=== PATIENT | male | born 1970 | race Caucasian/White ===

== ENCOUNTER 2016-10-23 12:16 | Emergency (ER) | payer SELFPAY ==
[~2016-10-23] VITALS: Ht 188 cm; Wt 105.5 kg
[~2016-10-23 12:16] MED LIST: CLIN150 PO; DICL75 PO; IBUP800T23 PO; LACT PO; TYLE3 PO
[2016-10-23 12:27] VITALS: BP 180/90; PULSE 79; RESP 16; TEMP 98; O2SAT 95
--- NOTE | 2016-10-23 12:35 | PD ---
HPI Chief Complaint: Dizziness Time Seen by Provider: 12:32 Travel History International Travel<30 days: No Contact w/Intl Traveler<30days: No Traveled to known affect area: No History of Present Illness HPI This is a 46-year-old male who presents to the emergency department with one hour of dizziness and lightheadedness, not feeling like himself and not feeling like he has control over his body, constant, improved here in the emergency department. He denies a headache, vomiting, chest pain or shortness of breath. He feels like his vision is blurry and describes a fog-like covering to his vision. He feels like he can't focus. He's not had any difficulty walking or talking. He's never had symptoms like this before. He did use marijuana at 3 AM and drink alcohol last night that he felt fine when he woke up this morning. He doesn't take any medication for high blood pressure. PFSH Past Medical History Hx Anticoagulant Therapy: No Blood Disorders: No Cancer: No Cardiovascular Problems: No Chemotherapy: No Cerebrovascular Accident: No Diabetes: No Diminished Hearing: No Genitourinary: No Immune Disorder: No Musculoskeletal: Yes Neurologic: No Psychiatric: No Reproductive: Yes Respiratory: No Immunizations Current: Yes Past Surgical History Abdominal Surgery: Yes (HERNIA REPAIR) Hysterectomy: No Other Surgery: Yes (cyst removal from face, hernia repair as ) Social History Alcohol Use: Yes (TWICE PER WK) Tobacco Use: Yes (LESS THAN ONE PPD) Substance Use: No Allergies-Medications (Allergen,Severity, Reaction): Coded Allergies: No Known Allergies (Verified , 10/23/16) Reported Meds & Prescriptions Reported Meds & Active Scripts Active No Active Prescriptions or Reported Medications Review of Systems Except as stated in HPI: all other systems reviewed are Neg Physical Exam Narrative GENERAL:Well appearing, no acute distress SKIN: Warm and dry. HEAD: Atraumatic. Normocephalic. EYES: Pupils equal and round. No injection or drainage. ENT: Moist mucous membranes NECK: Trachea midline. CARDIOVASCULAR: Regular rate and rhythm. No murmur appreciated. RESPIRATORY: Clear to auscultation. Breath sounds equal bilaterally. GASTROINTESTINAL: Abdomen soft, non-tender, nondistended. MUSCULOSKELETAL: No obvious deformities. NEUROLOGICAL: Awake and alert. No obvious cranial nerve deficits. No dysarthria or aphasia. No upper or lower extremity drift. No upper extremity ataxia. Inconsistent visual field exam. Patient feels like his vision is foggy when he is assessed. PSYCHIATRIC: Appropriate mood and affect; insight and judgment normal. Data Data Last Documented VS Vital Signs Date Time Temp Pulse Resp B/P Pulse Ox O2 Delivery O2 Flow Rate FiO2 10/23/16 13:05 68 16 155/76 98 Room Air 10/23/16 12:27 98.0 Orders Complete Blood Count With Diff (10/23/16 12:32) Comprehensive Metabolic Panel (10/23/16 12:32) Electrocardiogram (10/23/16 ) Troponin I (10/23/16 12:32) ^ Insert Iv (10/23/16 12:32) Sodium Chlor 0.9% 1000 Ml Inj (Ns 1000 M (10/23/16 12:45) Labetalol Inj (Trandate Inj) (10/23/16 12:45) Labs Laboratory Tests Test 10/23/16 12:38 White Blood Count 11.7 TH/MM3 Red Blood Count 5.11 MIL/MM3 Hemoglobin 15.7 GM/DL Hematocrit 46.2 % Mean Corpuscular Volume 90.4 FL Mean Corpuscular Hemoglobin 30.6 PG Mean Corpuscular Hemoglobin 33.9 % Concent Red Cell Distribution Width 12.7 % Platelet Count 208 TH/MM3 Mean Platelet Volume 8.5 FL Neutrophils (%) (Auto) 67.0 % Lymphocytes (%) (Auto) 21.7 % Monocytes (%) (Auto) 7.2 % Eosinophils (%) (Auto) 3.6 % Basophils (%) (Auto) 0.5 % Neutrophils # (Auto) 7.9 TH/MM3 Lymphocytes # (Auto) 2.5 TH/MM3 Monocytes # (Auto) 0.8 TH/MM3 Eosinophils # (Auto) 0.4 TH/MM3 Basophils # (Auto) 0.1 TH/MM3 CBC Comment DIFF FINAL Differential Comment Sodium Level 143 MEQ/L Potassium Level 4.0 MEQ/L Chloride Level 107 MEQ/L Carbon Dioxide Level 26.3 MEQ/L Anion Gap 10 MEQ/L Blood Urea Nitrogen 15 MG/DL Creatinine 1.20 MG/DL Estimat Glomerular Filtration 65 ML/MIN Rate Random Glucose 100 MG/DL Calcium Level 8.7 MG/DL Total Bilirubin 0.7 MG/DL Aspartate Amino Transf 17 U/L (AST/SGOT) Alanine Aminotransferase 28 U/L (ALT/SGPT) Alkaline Phosphatase 103 U/L Troponin I LESS THAN 0.02 NG/ML Total Protein 7.5 GM/DL Albumin 3.9 GM/DL MDM Medical Decision Making Medical Screen Exam Complete: Yes Emergency Medical Condition: Yes Interpretation(s) Afebrile, no tachycardia, hypertensive Mild leukocytosis Electrolytes are reassuring Troponin is normal EKG: Normal sinus rhythm with no ST changes Differential Diagnosis BPPV, dehydration, stroke, myocardial infarction, substance intoxication Narrative Course This is a 46-year-old male who presents to the emergency department with dizziness and lightheadedness, not feeling himself, having smoked marijuana and drank alcohol last night. He was placed on a monitor and an IV was established. EKG is reassuring with no arrhythmia. He was hypertensive on arrival but his blood pressure improved on its own with rest. Labs are obtained which were all reassuring. He has a normal neurologic exam. He had some abnormality on visual field assessment which was inconsistent. I suspect that the patient is having some side effects of substance use from last night. I don't suspect a stroke or another acute neurologic emergency. I think he's safe for discharge and follow-up with his primary care physician. Diagnosis Primary Impression: Dizziness Patient Instructions: General Instructions Additional Instructions: If you develop severe chest pain, shortness of breath, sweating, lightheadedness , dizziness or difficulty breathing return to the emergency department immediately. Followup with your primary care physician in 2-3 days if your symptoms are not resolved. Med/Other Pt SpecificInfo: No Change to Meds Scripts No Active Prescriptions or Reported Meds Disposition: 01 DISCHARGE HOME Condition: Stable Jamee Feledr MD Oct 23, 2016 12:35
[2016-10-23] MEDS ORDERED: SODIUM CHLOR 0.9% 1000 ML INJ 1,000 ML IV ONE (12:45)
[2016-10-23] MEDS ORDERED: LABETALOL HCL 100 MG/20 ML VIAL IV PUSH ONE (12:45)
[2016-10-23 12:49] LABS: AUTOMATED NEUTROPHIL # 7.9 TH/MM3 (1.8-7.7); BASOPHIL # 0.1 TH/MM3 (0-0.2); BASOPHIL % 0.5 % (0.0-2.0); EOSINOPHIL # 0.4 TH/MM3 (0-0.4); EOSINOPHIL % 3.6 % (0.0-4.0); HEMATOCRIT 46.2 % (39.0-51.0); HEMO FLAGS DIFF FINAL; LYMPH % 21.7 % (9.0-44.0); LYMPHOCYTE # 2.5 TH/MM3 (1.0-4.8); MEAN CELL VOLUME 90.4 FL (80.0-100.0); MEAN CORPUSCULAR HEMOGLOBIN 30.6 PG (27.0-34.0); MEAN CORPUSCULAR HGB CONC 33.9 % (32.0-36.0); MONO % 7.2 % (0.0-8.0); PLATELET COUNT 208 TH/MM3 (150-450); RED BLOOD COUNT 5.11 MIL/MM3 (4.50-5.90); RED CELL DISTRIBUTION WIDTH 12.7 % (11.6-17.2); WHITE BLOOD COUNT 11.7 TH/MM3 (4.0-11.0)
[2016-10-23 12:56] LABS: CHLORIDE 107 MEQ/L (98-107); SODIUM (NA) 143 MEQ/L (136-145)
[2016-10-23 13:00] LABS: ANION GAP 10 MEQ/L (5-15); BICARBONATE 26.3 MEQ/L (21.0-32.0); BLOOD UREA NITROGEN 15 MG/DL (7-18)
[2016-10-23 13:03] LABS: ALT (GPT) 28 U/L (12-78); AST (GOT) 17 U/L (15-37); GLOMERULAR FILTRATION RATE 65 ML/MIN (>89)
[2016-10-23 13:05] VITALS: BP 155/76; PULSE 68; RESP 16; O2SAT 98
[2016-10-23 13:05] LABS: TOTAL BILIRUBIN ADULT 0.7 MG/DL (0.2-1.0)
[2016-10-23 13:06] LABS: ALKALINE PHOSPHATASE 103 U/L (45-117)
--- NOTE | 2016-10-23 15:24 | EKG ---
Date Performed: 10/23/2016 Time Performed: 12:24:52 PTAGE: 46 years EKG: Sinus rhythm . Normal ECG No significant change from prior electrocardiogram. PREVIOUS TRACING : 05/13/2010 10.09 DOCTOR: Mehdi Pires Interpretating Date/Time 10/23/2016 15:22:31
== END 2016-10-23 13:37 | disposition home or self-care (01) ==
LOC: PHED 12:16
DX: R42 Dizziness and giddiness (principal); H53.8 Other visual disturbances; F17.210 Nicotine dependence, cigarettes, uncomplicated; R03.0 Elevated blood-pressure reading, without diagnosis of hypertension
CPT/HCPCS: 80053; 84484; 85025; 93005; 99284; J7030

== ENCOUNTER 2017-11-29 05:08 | Emergency (ER) | payer SELFPAY ==
[~2017-11-29] VITALS: Ht 190.5 cm; Wt 111.0 kg
[2017-11-29 05:16] VITALS: BP 138/90; PULSE 71; RESP 18; TEMP 97.8; O2SAT 95
[2017-11-29 05:27] VITALS: BP 143/93; PULSE 75; RESP 18; O2SAT 100
[2017-11-29] MEDS ORDERED: SODIUM CHLORIDE 0.9% FLUSH 10 ML FLUSH IVF PRN (05:45)
--- NOTE | 2017-11-29 05:46 | PD ---
HPI Chief Complaint: General Weakness Time Seen by Provider: 05:36 Travel History International Travel<30 days: No Contact w/Intl Traveler<30days: No Traveled to known affect area: No History of Present Illness HPI 47-year-old male presents to the emergency department by private transportation for complaint of 1 month of increased sweating and night sweats with poor appetite, 10# weight loss, and cough. Patient denies fever chills. Patient denies hemoptysis. Patient has noted dark stools. Patient does not report any chest pain, pleuritic chest pain, or shortness of breath. Patient states he does have associated increased fatigue. No prior history of thyroid dysfunction , diabetes, or TB. No other family members with similar symptoms. Approximately 10 pound weight loss over a month. Patient states he is unable to perform his usual tasks without associated fatigue. Father from lymphoma in his 40s and mother in her 40s of some type of cancer. Patient denies personal history of thyroid dysfunction, diabetes, hypertension, dyslipidemia, heart disease, autoimmune disease, or cancer. Patient does not report fever, chills, altered mentation, ataxia, visual disturbance, difficulty swallowing, sinus pressure drainage, earache, neck pain or swelling, or lymph nodes, chest pain or shortness of breath, nausea or vomiting, patient does not complain of abdominal pain or increasing abdominal girth. Patient does report he's noted dark stools. PFSH Past Medical History Narrative Medical back pain; herniorrhaphy; tobacco use alcohol use; nursing notes reviewed Hx Anticoagulant Therapy: No Blood Disorders: No Cancer: No Cardiovascular Problems: No Chemotherapy: No Cerebrovascular Accident: No Diabetes: No Diminished Hearing: No Gastrointestinal Disorders: No Genitourinary: No Immune Disorder: No Implanted Vascular Access Dvce: No Musculoskeletal: Yes Neurologic: No Psychiatric: No Reproductive: Yes Respiratory: No Immunizations Current: Yes ?: Not Past Surgical History Abdominal Surgery: Yes (HERNIA REPAIR) Hysterectomy: No Other Surgery: Yes (cyst removal from face, hernia repair as ) Family History Family History: father cancer; mother cancer Social History Alcohol Use: Yes (SOCIAL) Tobacco Use: Yes (08/09 PPD) Substance Use: No Allergies-Medications (Allergen,Severity, Reaction): Coded Allergies: No Known Allergies (Verified , 10/23/16) Reported Meds & Prescriptions Reported Meds & Active Scripts Active No Active Prescriptions or Reported Medications Review of Systems Except as stated in HPI: all other systems reviewed are Neg General / Constitutional: No: Fever, Chills HENT: No: Congestion Cardiovascular: No: Chest Pain or Discomfort Respiratory: No: Shortness of Breath Gastrointestinal: No: Abdominal Pain Musculoskeletal: No: Pain Skin: Positive Rash Neurologic: No: Weakness Psychiatric: No: Anxiety Hematologic/Lymphatic: No: Lymph Node Enlargement Physical Exam Narrative GENERAL: Well-developed nourished male no acute distress no respiratory distress SKIN: Warm and dry. No splinter hemorrhages. HEAD: Atraumatic. Normocephalic. EYES: Pupils equal and round. No scleral icterus. No injection or drainage. ENT: No nasal bleeding or discharge. Mucous membranes pink and moist. NECK: Trachea midline. No JVD. CARDIOVASCULAR: Regular rate and rhythm. No murmur or rubs. RESPIRATORY: No accessory muscle use. Clear to auscultation. Breath sounds equal bilaterally. GASTROINTESTINAL: Abdomen soft, non-tender, nondistended. Hepatic and splenic margins not palpable. Rectal exam: No fissure normal sphincter tone mild prostate enlargement to palpation without nodularity and sulcus is midline nontender non-boggy; brown stool Hemoccult negative. MUSCULOSKELETAL: Extremities without clubbing, cyanosis, or edema. No obvious deformities. NEUROLOGICAL: Awake and alert. No obvious cranial nerve deficits. Motor grossly within normal limits. Five out of 5 muscle strength in the arms and legs. Normal speech. PSYCHIATRIC: Appropriate mood and affect; insight and judgment normal. Data Data Last Documented VS Vital Signs Date Time Temp Pulse Resp B/P (MAP) Pulse Ox O2 Delivery O2 Flow Rate FiO2 11/29/17 06:32 69 16 147/83 (104) 100 Room Air 11/29/17 05:16 97.8 Orders Orders Complete Blood Count With Diff (11/29/17 05:36) Comprehensive Metabolic Panel (11/29/17 05:36) Magnesium (Mg) (11/29/17 05:36) Urinalysis - C+S If Indicated (11/29/17 05:36) Chest, Pa & Lat (11/29/17 05:36) Ecg Monitoring (11/29/17 05:36) Iv Access Insert/Monitor (11/29/17 05:36) Oximetry (11/29/17 05:36) Sodium Chloride 0.9% Flush (Ns Flush) (11/29/17 05:45) Thyroid Stimulating Hormone (11/29/17 05:36) Alcohol (Ethanol) (11/29/17 05:36) Blood Glucose (11/29/17 05:36) Lipase (11/29/17 05:36) Electrocardiogram (11/29/17 ) Lactic Acid (11/29/17 06:30) Troponin I (11/29/17 05:43) Mandatory Outpatient Referral (11/29/17 06:50) Labs Laboratory Tests Test 11/29/17 05:43 11/29/17 06:30 White Blood Count 11.0 TH/MM3 Red Blood Count 5.26 MIL/MM3 Hemoglobin 16.6 GM/DL Hematocrit 48.2 % Mean Corpuscular Volume 91.6 FL Mean Corpuscular Hemoglobin 31.6 PG Mean Corpuscular Hemoglobin Concent 34.5 % Red Cell Distribution Width 13.4 % Platelet Count 205 TH/MM3 Mean Platelet Volume 8.2 FL Neutrophils (%) (Auto) 67.5 % Lymphocytes (%) (Auto) 20.4 % Monocytes (%) (Auto) 6.8 % Eosinophils (%) (Auto) 3.2 % Basophils (%) (Auto) 2.1 % Neutrophils # (Auto) 7.3 TH/MM3 Lymphocytes # (Auto) 2.3 TH/MM3 Monocytes # (Auto) 0.8 TH/MM3 Eosinophils # (Auto) 0.4 TH/MM3 Basophils # (Auto) 0.2 TH/MM3 CBC Comment DIFF FINAL Differential Comment Blood Urea Nitrogen 16 MG/DL Creatinine 1.10 MG/DL Random Glucose 86 MG/DL Total Protein 7.3 GM/DL Albumin 3.6 GM/DL Calcium Level 9.0 MG/DL Magnesium Level 2.2 MG/DL Alkaline Phosphatase 108 U/L Aspartate Amino Transf (AST/SGOT) 14 U/L Alanine Aminotransferase (ALT/SGPT) 23 U/L Total Bilirubin 0.4 MG/DL Sodium Level 140 MEQ/L Potassium Level 3.9 MEQ/L Chloride Level 108 MEQ/L Carbon Dioxide Level 26.5 MEQ/L Anion Gap 6 MEQ/L Estimat Glomerular Filtration Rate 71 ML/MIN Lipase 112 U/L Thyroid Stimulating Hormone 3rd Gen 1.490 uIU/ML Ethyl Alcohol Level LESS THAN 3 MG/DL MDM Medical Decision Making Medical Screen Exam Complete: Yes Emergency Medical Condition: Yes Medical Record Reviewed: Yes Interpretation(s) TSH: 1.490, wnl cxr: nad lipase: not elevated CBC & BMP Diagram 11/29/17 05:43 Total Protein 7.3, Albumin 3.6, Calcium Level 9.0, Magnesium Level 2.2, Alkaline Phosphatase 108, Aspartate Amino Transf (AST/SGOT) 14 L, Alanine Aminotransferase (ALT/SGPT) 23, Total Bilirubin 0.4 Vital Signs Date Time Temp Pulse Resp B/P (MAP) Pulse Ox O2 Delivery O2 Flow Rate FiO2 11/29/17 05:31 18 100 Room Air 11/29/17 05:27 75 18 143/93 (110) 100 11/29/17 05:16 97.8 71 18 138/90 (106) 95 Differential Diagnosis Diabetes, thyroid dysfunction, hormonal etiology-low testosterone, malignancy, infectious etiology-tuberculosis\endocarditis\osteomyelitis\viral syndrome, gi bleed-anemia, substance ingestion, alcohol use/abuse-cirrhosis, CVD Narrative Course 47-year-old previously healthy male with 1 month of weight loss night sweats and fatigue presents for further evaluation with nonfocal physical exam and vital signs grossly within normal limits. Specimens collected and sent for resulting. CBC with automated differential values are in normal range normal white cell count normal automated differential normal hemoglobin hematocrit and platelet count; chemistries remarkable for grossly within normal range with normal LFTs lipase renal function BUN/creatinine bicarb and electrolytes also normal range glucose. Alcohol less than 3, not elevated; denies substance use or exposure. [facility] Point of Care Internal Pos. & Neg. Controls: Passed Fecal Specimen Occult Blood: Negative Diagnosis Primary Impression: Generalized hyperhidrosis Referrals: Primary Care Physician call for appointment Patient Instructions: General Instructions Additional Instructions: Follow-up with primary care provider Return to the emergency department for any concerns or change in condition Med/Other Pt SpecificInfo: No Meds Exist/No RX given Scripts No Active Prescriptions or Reported Meds Tessa Arnold MD Nov 29, 2017 05:46
[2017-11-29 05:53] LABS: AUTOMATED NEUTROPHIL # 7.3 TH/MM3 (1.8-7.7); BASOPHIL # 0.2 TH/MM3 (0-0.2); BASOPHIL % 2.1 % (0.0-2.0); EOSINOPHIL # 0.4 TH/MM3 (0-0.4); EOSINOPHIL % 3.2 % (0.0-4.0); HEMATOCRIT 48.2 % (39.0-51.0); HEMOGLOBIN 16.6 GM/DL (13.0-17.0); LYMPH % 20.4 % (9.0-44.0); LYMPHOCYTE # 2.3 TH/MM3 (1.0-4.8); MEAN CELL VOLUME 91.6 FL (80.0-100.0); MEAN CORPUSCULAR HEMOGLOBIN 31.6 PG (27.0-34.0); MEAN CORPUSCULAR HGB CONC 34.5 % (32.0-36.0); MEAN PLATELET VOLUME 8.2 FL (7.0-11.0); MONO % 6.8 % (0.0-8.0); MONOCYTE # 0.8 TH/MM3 (0-0.9); NEUT % 67.5 % (16.0-70.0); PLATELET COUNT 205 TH/MM3 (150-450); RED BLOOD COUNT 5.26 MIL/MM3 (4.50-5.90); RED CELL DISTRIBUTION WIDTH 13.4 % (11.6-17.2)
[2017-11-29 06:01] LABS: CHLORIDE 108 MEQ/L (98-107); SODIUM (NA) 140 MEQ/L (136-145)
[2017-11-29 06:05] LABS: ALBUMIN 3.6 GM/DL (3.4-5.0); BICARBONATE 26.5 MEQ/L (21.0-32.0); BLOOD UREA NITROGEN 16 MG/DL (7-18); GLUCOSE,RANDOM 86 MG/DL (74-106); MAGNESIUM 2.2 MG/DL (1.5-2.5)
[2017-11-29 06:08] LABS: ALT (GPT) 23 U/L (12-78); AST (GOT) 14 U/L (15-37); GLOMERULAR FILTRATION RATE 71 ML/MIN (>89)
[2017-11-29 06:09] LABS: TOTAL BILIRUBIN ADULT 0.4 MG/DL (0.2-1.0); TOTAL PROTEIN 7.3 GM/DL (6.4-8.2)
[2017-11-29 06:11] LABS: ALKALINE PHOSPHATASE 108 U/L (45-117)
--- NOTE | 2017-11-29 06:29 | RADRPT ---
EXAM DATE/TIME: 11/29/2017 06:05 [facility] COMPARISON: No previous studies available for comparison. INDICATIONS : Cough. MEDICAL HISTORY : None. SURGICAL HISTORY : None. ENCOUNTER: Initial ACUITY: 1 month PAIN SCORE: 0/10 LOCATION: Bilateral chest FINDINGS: PA and lateral views of the chest demonstrate the lungs to be symmetrically aerated without evidence of mass, infiltrate or effusion. The cardiomediastinal contours are unremarkable. Osseous structure s are intact. CONCLUSION: No acute disease. Bob Echavarria MD on November 29, 2017 at 6:27 Board Certified Radiologist. This report was verified electronically.
[2017-11-29 06:32] VITALS: BP 147/83; PULSE 69; RESP 16; O2SAT 100
[2017-11-29 07:01] LABS: BILIRUBIN, URINE NEG (NEG); BLOOD, URINE NEG (NEG); GLUCOSE,URINE NEG (NEG); KETONE, URINE NEG (NEG); NITRITE,URINE NEG (NEG); PH, URINE 6.5 (5.0-8.5); URINE COLOR YELLOW (YELLW/STRAW); URINE LEUKOCYTE ESTERASE NEG (NEG)
[2017-11-29 07:01] LABS: TROPONIN I LESS THAN 0.02 NG/ML (0.02-0.05)
[2017-11-29 07:19] LABS: SQUAMOUS EPITHELIAL CELL URINE 0-1 /hpf (0-5)
--- NOTE | 2017-11-29 07:34 | PD ---
Physical Exam Date Seen by Provider: Nov 29, 2017 Time Seen by Provider: 07:30 Narrative This 47-year-old male was seen initially by Dr. Arnold. He had presented with complaints of cough and night sweats. He says he been having night sweats for several days. He says he had a 10 pound weight loss. He smokes half a pack a day. He has not coughed up any blood. He has had a chest x-ray which is negative. Lab work has not revealed an etiology for his symptoms. I offered to order a CT scan to assess his chest and more detail however the patient wishes to go to work at this time. Dr. Arnold has arranged for mandatory follow -up for the gentleman. His symptoms are certainly concerning and could be related to infection or malignancy and the importance of follow-up was stressed to him. I also advised him to return if symptoms should change Data Data Last Documented VS Vital Signs Date Time Temp Pulse Resp B/P (MAP) Pulse Ox O2 Delivery O2 Flow Rate FiO2 11/29/17 06:32 69 16 147/83 (104) 100 Room Air 11/29/17 05:16 97.8 Orders Orders Complete Blood Count With Diff (11/29/17 05:36) Comprehensive Metabolic Panel (11/29/17 05:36) Magnesium (Mg) (11/29/17 05:36) Urinalysis - C+S If Indicated (11/29/17 05:36) Chest, Pa & Lat (11/29/17 05:36) Ecg Monitoring (11/29/17 05:36) Iv Access Insert/Monitor (11/29/17 05:36) Oximetry (11/29/17 05:36) Sodium Chloride 0.9% Flush (Ns Flush) (11/29/17 05:45) Thyroid Stimulating Hormone (11/29/17 05:36) Alcohol (Ethanol) (11/29/17 05:36) Blood Glucose (11/29/17 05:36) Lipase (11/29/17 05:36) Electrocardiogram (11/29/17 ) Lactic Acid (11/29/17 06:30) Troponin I (11/29/17 05:43) Mandatory Outpatient Referral (11/29/17 06:50) Labs Laboratory Tests Test 11/29/17 05:43 4/24/18 06:30 White Blood Count 11.0 TH/MM3 Red Blood Count 5.26 MIL/MM3 Hemoglobin 16.6 GM/DL Hematocrit 48.2 % Mean Corpuscular Volume 91.6 FL Mean Corpuscular Hemoglobin 31.6 PG Mean Corpuscular Hemoglobin Concent 34.5 % Red Cell Distribution Width 13.4 % Platelet Count 205 TH/MM3 Mean Platelet Volume 8.2 FL Neutrophils (%) (Auto) 67.5 % Lymphocytes (%) (Auto) 20.4 % Monocytes (%) (Auto) 6.8 % Eosinophils (%) (Auto) 3.2 % Basophils (%) (Auto) 2.1 % Neutrophils # (Auto) 7.3 TH/MM3 Lymphocytes # (Auto) 2.3 TH/MM3 Monocytes # (Auto) 0.8 TH/MM3 Eosinophils # (Auto) 0.4 TH/MM3 Basophils # (Auto) 0.2 TH/MM3 CBC Comment DIFF FINAL Differential Comment Blood Urea Nitrogen 16 MG/DL Creatinine 1.10 MG/DL Random Glucose 86 MG/DL Total Protein 7.3 GM/DL Albumin 3.6 GM/DL Calcium Level 9.0 MG/DL Magnesium Level 2.2 MG/DL Alkaline Phosphatase 108 U/L Aspartate Amino Transf (AST/SGOT) 14 U/L Alanine Aminotransferase (ALT/SGPT) 23 U/L Total Bilirubin 0.4 MG/DL Sodium Level 140 MEQ/L Potassium Level 3.9 MEQ/L Chloride Level 108 MEQ/L Carbon Dioxide Level 26.5 MEQ/L Anion Gap 6 MEQ/L Estimat Glomerular Filtration Rate 71 ML/MIN Troponin I LESS THAN 0.02 NG/ML Lipase 112 U/L Thyroid Stimulating Hormone 3rd Gen 1.490 uIU/ML Ethyl Alcohol Level LESS THAN 3 MG/DL Urine Collection Type VOIDED Urine Color YELLOW Urine Turbidity CLEAR Urine pH 6.5 Urine Specific [place] LESS/EQUAL 1.005 Urine Protein NEG mg/dL Urine Glucose (UA) NEG mg/dL Urine Ketones NEG mg/dL Urine Occult Blood NEG Urine Nitrite NEG Urine Bilirubin NEG Urine Urobilinogen 0.2 MG/DL Urine Leukocyte Esterase NEG Urine Squamous Epithelial Cells 0-1 /hpf Microscopic Urinalysis Comment CULT NOT INDICATED Lactic Acid Level 0.7 mmol/L [facility] Medical Record Reviewed: No Supervised Visit with RENE: No Differential Diagnosis Differential includes viral syndrome, tuberculosis, lymphoma Narrative Course Workup is not revealed an etiology. Patient does describe drenching night sweats which soak his pillow. Importance of follow-up was stressed to him as well as the need to return if any problems Diagnosis Primary Impression: Generalized hyperhidrosis Referrals: Primary Care Physician call for appointment Patient Instructions: General Instructions Additional Instruction: Follow-up with primary care provider Return to the emergency department for any concerns or change in condition Scripts No Active Prescriptions or Reported Meds Disposition: 01 DISCHARGE HOME Condition: Stable Sav Smalls MD Nov 29, 2017 07:34
[2017-11-29 07:55] VITALS: BP 127/82
--- NOTE | 2017-11-29 08:20 | EKG ---
Date Performed: 11/29/2017 Time Performed: 06:58:52 PTAGE: 47 years EKG: SINUS BRADYCARDIA BORDERLINE ECG PREVIOUS TRACING : 10/23/2016 12.24 No significant change from previous tracing noted. DOCTOR: Tonio Thomas Interpretating Date/Time 11/29/2017 08:19:26
== END 2017-11-29 08:05 | disposition home or self-care (01) ==
LOC: PHED 05:08
DX: R61 Generalized hyperhidrosis (principal); R63.4 Abnormal weight loss; R05 Cough; R00.1 Bradycardia, unspecified; F17.210 Nicotine dependence, cigarettes, uncomplicated
CPT/HCPCS: 71046; 80053; 80307; 81001; 83605; 83690; 83735; 84443; 84484; 85025; 93005; 99285

== ENCOUNTER 2017-12-24 11:44 | Emergency (ER) | payer SELFPAY ==
[~2017-12-24] VITALS: Ht 190.5 cm; Wt 7.0 kg
[2017-12-24 11:47] VITALS: BP 153/80; PULSE 79; RESP 16; TEMP 97.7; O2SAT 96
[2017-12-24] MEDS ORDERED: KETOROLAC TROMETHAMINE 30 MG/ML (IVP) VIAL IVP ONE (12:00)
[2017-12-24] MEDS ORDERED: SODIUM CHLORIDE 0.9% FLUSH 10 ML FLUSH IV FLUSH PRN (12:00)
--- NOTE | 2017-12-24 12:07 | PD ---
HPI Chief Complaint: Complaint Time Seen by Provider: 11:59 Travel History International Travel<30 days: No Contact w/Intl Traveler<30days: No Traveled to known affect area: No History of Present Illness HPI 48-year-old patient presents with a multitude of complaints. States he has nighttime fevers for approximately 2 months which he was evaluated for 3 weeks ago with negative findings. Reports a 10 pound weight loss over the last 6-8 weeks. Evaluated by 2 ER physicians on the same day. CT of the chest was offered, patient declined. Denies TB exposure. Works as a director long term care. He is a smoker. Smokes a 1-1/2 packs per day for 30 years. States since then he has noticed a rash about his neck and anterior chest that has slowly progressed with associated right trapezius pain. Denies any trauma misstep or fall. Aggravated with range of motion. Relieved with rest. Pain 7 out of 10. States this morning he went to have a bowel movement which was loose and full of blood. Bright red. Quantifies approximately a cup. Denies any abdominal pain. Denies any previous abdominal surgeries or history of hemorrhoids. Denies any previous colonoscopy. Currently on no medications. Denies any significant past medical history. Lost his father lymphoma. Feeling overwhelmed. States he did not follow-up with primary care as indicated by Dr. Arnold. [facility] Past Medical History Hx Anticoagulant Therapy: No Blood Disorders: No Cancer: No Cardiovascular Problems: No Chemotherapy: No Cerebrovascular Accident: No Diabetes: No Diminished Hearing: No Gastrointestinal Disorders: No Genitourinary: No Immune Disorder: No Implanted Vascular Access Dvce: No Musculoskeletal: Yes Neurologic: No Psychiatric: No Reproductive: Yes Respiratory: No Immunizations Current: Yes Past Surgical History Abdominal Surgery: Yes (HERNIA REPAIR) Hysterectomy: No Other Surgery: Yes (cyst removal from face, hernia repair as infant) Social History Alcohol Use: Yes (SOCIAL) Tobacco Use: Yes (1/2 PPD) Substance Use: No Allergies-Medications (Allergen,Severity, Reaction): Coded Allergies: No Known Allergies (Verified Adverse Reaction, Unknown, 12/24/17) Reported Meds & Prescriptions Reported Meds & Active Scripts Active No Active Prescriptions or Reported Medications Review of Systems General / Constitutional: Positive: Fever, Weight Loss Gastrointestinal: Positive: Diarrhea, Hematochezia Musculoskeletal: Positive: Myalgias, Pain Skin: Positive Rash Physical Exam Narrative GENERAL: Well-nourished, well-developed patient. SKIN: Focused skin assessment warm/dry. Patient has some sun exposure but I do not appreciate a prominent rash Examination of cervical spine reveals no midline tenderness right-sided paraspinous pain radiating into the trapezius, good upper extremity strength HEAD: Normocephalic. EYES: No scleral icterus. No injection or drainage. NECK: Supple, trachea midline. No JVD or lymphadenopathy. CARDIOVASCULAR: Regular rate and rhythm without murmurs, gallops, or rubs. RESPIRATORY: Breath sounds equal bilaterally. No accessory muscle use. GASTROINTESTINAL: Abdomen soft, non-tender, nondistended. No hepatosplenomegaly Rectal exam was significant hemorrhoids do not appreciate any thrombosed hemorrhoids. Hemoccult positive MUSCULOSKELETAL: No cyanosis, or edema. BACK: Nontender without obvious deformity. No CVA tenderness. Data Data Last Documented VS Vital Signs Date Time Temp Pulse Resp B/P (MAP) Pulse Ox O2 Delivery O2 Flow Rate FiO2 12/24/17 16:18 65 16 109/76 (87) 96 Room Air 12/24/17 11:47 97.7 Orders Orders Complete Blood Count With Diff (12/24/17 11:59) Comprehensive Metabolic Panel (12/24/17 11:59) Lipase (12/24/17 11:59) Lactic Acid (12/24/17 11:59) Ct Abd/Pel W Iv Contrast(Rout) (12/24/17 11:59) Iv Access Insert/Monitor (12/24/17 11:59) Ecg Monitoring (12/24/17 11:59) Oximetry (12/24/17 11:59) Sodium Chloride 0.9% Flush (Ns Flush) (12/24/17 12:00) Ketorolac Inj (Toradol Inj) (12/24/17 12:00) Ct Cerv Spine W/O Contrast (12/24/17 ) Ct Thorax/ Chest W Iv Contrast (12/24/17 ) Ondansetron Inj (Zofran Inj) (12/24/17 14:30) Iohexol 350 Inj (Omnipaque 350 Inj) (12/24/17 14:30) Sodium Chlor 0.9% 250 Ml Inj (Ns 250 Ml (12/24/17 16:30) Ketorolac Inj (Toradol Inj) (12/24/17 16:45) Labs Laboratory Tests Test 12/24/17 12:10 White Blood Count 12.4 TH/MM3 Red Blood Count 5.01 MIL/MM3 Hemoglobin 15.7 GM/DL Hematocrit 46.2 % Mean Corpuscular Volume 92.2 FL Mean Corpuscular Hemoglobin 31.3 PG Mean Corpuscular Hemoglobin Concent 33.9 % Red Cell Distribution Width 12.6 % Platelet Count 203 TH/MM3 Mean Platelet Volume 8.2 FL Neutrophils (%) (Auto) 79.5 % Lymphocytes (%) (Auto) 14.3 % Monocytes (%) (Auto) 3.7 % Eosinophils (%) (Auto) 1.4 % Basophils (%) (Auto) 1.1 % Neutrophils # (Auto) 9.8 TH/MM3 Lymphocytes # (Auto) 1.8 TH/MM3 Monocytes # (Auto) 0.5 TH/MM3 Eosinophils # (Auto) 0.2 TH/MM3 Basophils # (Auto) 0.1 TH/MM3 CBC Comment DIFF FINAL Differential Comment Blood Urea Nitrogen 10 MG/DL Creatinine 1.10 MG/DL Random Glucose 98 MG/DL Total Protein 7.4 GM/DL Albumin 3.9 GM/DL Calcium Level 9.2 MG/DL Alkaline Phosphatase 104 U/L Aspartate Amino Transf (AST/SGOT) 11 U/L Alanine Aminotransferase (ALT/SGPT) 25 U/L Total Bilirubin 0.9 MG/DL Sodium Level 142 MEQ/L Potassium Level 4.0 MEQ/L Chloride Level 109 MEQ/L Carbon Dioxide Level 26.4 MEQ/L Anion Gap 7 MEQ/L Estimat Glomerular Filtration Rate 71 ML/MIN Lactic Acid Level 0.9 mmol/L Lipase 1145 U/L [facility] Medical Decision Making Medical Screen Exam Complete: Yes Emergency Medical Condition: Yes Differential Diagnosis Hemorrhoidal bleeding, colitis, viral infection, viral exanthem, cervical degenerative disc disease, muscular skeletal pain Narrative Course Assessment plan discussed with patient at bedside. Significantly elevated lipase with minimal increase in white cell count. Discussed that night sweats might be associated with anxiety. Last 72 hours Impressions Abdomen/Pelvis CT 12/24/17 8236 Signed Impressions: Service Date/Time: Sunday, December 24, 2017 14:21 - CONCLUSION: 1. No acute CT abnormality to account for patient's symptoms. 2. Normal appendix. 3. Minimal colonic diverticulosis without evidence for diverticulitis. 4. Stable 10 mm hypodense lesion in the posterior right lobe of the liver which is too small to fully characterize. Statistically, this reflects hemangioma or cyst. Faustino Alejo MD Chest CT 12/24/17 0000 Signed Impressions: Service Date/Time: Sunday, December 24, 2017 14:21 - CONCLUSION: 1. Very minimal groundglass opacities at the lung bases likely reflecting atelectasis. 2. 3 mm nodule in the inferior right middle lobe. 2017 Fleischner criteria does not recommend followup examination for <4 mm nodules. 3. Stable 10 mm posterior right lobe hepatic lesion which is too small to fully characterize but statistically reflects a hemangioma or small cyst. Faustino Alejo MD Cervical Spine CT 12/24/17 0000 Signed Impressions: Service Date/Time: Sunday, December 24, 2017 14:14 - CONCLUSION: 1. No acute fracture or subluxation 2. Degenerative spondylosis of the cervical spine most prominently at C5-6 with posterior disc osteophyte complex resulting in mild to moderate cervical canal stenosis and moderate bilateral neural foraminal narrowing. 3. Multilevel facet arthropathy most prominently at C2-3 on the right. Faustino Alejo MD Physician Communication Physician Communication Case discussed and reviewed with Dr Rasheed who recommended discharge over admission Diagnosis Primary Impression: Degenerative disc disease, cervical Additional Impressions: Bleeding hemorrhoids Elevated lipase Patient Instructions: General Instructions Additional Instructions: Encouraged nonsteroidal anti-inflammatories warm heat gentle stretching and strengthening and massage. Pain medication and muscle relaxer as prescribed. Encourage smoking cessation. Motrin or Tylenol for night sweats. Encouraged a daily fiber supplement to keep stool soft. Encourage good fluid intake. Encouraged to avoid Valsalva maneuver. Encouraged to follow-up with [facility] for health maintenance concerns including a colonoscopy Encouraged to return to the emergency room with any onset of new symptoms. Med/Other Pt SpecificInfo: Prescription(s) given Scripts Cyclobenzaprine (Flexeril) 10 Mg Tab 10 MG PO TID for Muscle Spasm, #30 TAB 0 Refills Prov: Ritchie Dasilva MD 12/24/17 Hydrocodone-Acetaminophen (Hydrocodone-Acetaminophen) 10-325 mg Tab 1 TAB PO Q4H Y for PAIN, #20 TAB 0 Refills Prov: Ritchie Dasilva MD 12/24/17 Disposition: 01 DISCHARGE HOME Condition: Good Ritchie Dasilva MD December 24, 2017 12:07
[2017-12-24 12:14] VITALS: O2SAT 98
[2017-12-24 12:23] LABS: AUTOMATED NEUTROPHIL # 9.8 TH/MM3 (1.8-7.7); BASOPHIL # 0.1 TH/MM3 (0-0.2); BASOPHIL % 1.1 % (0.0-2.0); EOSINOPHIL # 0.2 TH/MM3 (0-0.4); EOSINOPHIL % 1.4 % (0.0-4.0); HEMATOCRIT 46.2 % (39.0-51.0); HEMOGLOBIN 15.7 GM/DL (13.0-17.0); LYMPH % 14.3 % (9.0-44.0); LYMPHOCYTE # 1.8 TH/MM3 (1.0-4.8); MEAN CELL VOLUME 92.2 FL (80.0-100.0); MEAN CORPUSCULAR HEMOGLOBIN 31.3 PG (27.0-34.0); MEAN CORPUSCULAR HGB CONC 33.9 % (32.0-36.0); MEAN PLATELET VOLUME 8.2 FL (7.0-11.0); MONO % 3.7 % (0.0-8.0); MONOCYTE # 0.5 TH/MM3 (0-0.9); NEUT % 79.5 % (16.0-70.0); PLATELET COUNT 203 TH/MM3 (150-450); RED BLOOD COUNT 5.01 MIL/MM3 (4.50-5.90); RED CELL DISTRIBUTION WIDTH 12.6 % (11.6-17.2); WHITE BLOOD COUNT 12.4 TH/MM3 (4.0-11.0)
[2017-12-24 12:32] LABS: CHLORIDE 109 MEQ/L (98-107); SODIUM (NA) 142 MEQ/L (136-145)
[2017-12-24 12:36] LABS: ALBUMIN 3.9 GM/DL (3.4-5.0); BICARBONATE 26.4 MEQ/L (21.0-32.0); CALCIUM 9.2 MG/DL (8.5-10.1); GLUCOSE,RANDOM 98 MG/DL (74-106)
[2017-12-24 12:37] LABS: BLOOD UREA NITROGEN 10 MG/DL (7-18)
[2017-12-24 12:39] LABS: ALT (GPT) 25 U/L (12-78); AST (GOT) 11 U/L (15-37); GLOMERULAR FILTRATION RATE 71 ML/MIN (>89)
[2017-12-24 12:41] LABS: TOTAL BILIRUBIN ADULT 0.9 MG/DL (0.2-1.0); TOTAL PROTEIN 7.4 GM/DL (6.4-8.2)
[2017-12-24 12:42] LABS: ALKALINE PHOSPHATASE 104 U/L (45-117)
[2017-12-24 13:30] VITALS: BP 133/73; PULSE 58; RESP 16; O2SAT 97
[2017-12-24] MEDS ORDERED: ONDANSETRON HCL 4 MG/2 ML VIAL IV PUSH ONE (14:30)
[2017-12-24] MEDS ORDERED: IOHEXOL 350 MG/ML 10 ML VIAL (for RAD DIAG) IVCONTRAST ONE (14:30)
--- NOTE | 2017-12-24 14:41 | RADRPT ---
EXAM DATE/TIME: 12/24/2017 14:14 [facility] COMPARISON: No previous studies available for comparison. INDICATIONS : Neck pain today. RADIATION DOSE: 26.67 CTDIvol (mGy) MEDICAL HISTORY : None SURGICAL HISTORY : None. ENCOUNTER: Initial ACUITY: 1 day PAIN SCALE: 7/10 LOCATION: Bilateral neck TECHNIQUE: Volumetric scanning of the cervical spine was performed. Multiplanar reconstructions i n the sagittal, coronal and oblique axial planes were performed. Using automated exposure control a nd adjustment of the mA and/or kV according to patient size, radiation dose was kept as low as reason ably achievable to obtain optimal diagnostic quality images. DICOM format image data is available e lectronically for review and comparison. FINDINGS: Vertebral body heights are maintained. Osseous structures are intact without evidence for acute bony fracture. Dens is intact. Sagittal alignment is maintained. There is a normal C1-2 relationship. Face ts are normally aligned. There is no significant prevertebral soft tissue hematoma. Degenerative spondylosis of the cervical spine most prominently at C5-6 and C6-7 with disc space narr owing and posterior disc osteophyte complex. Effacement of the anterior thecal sac, slightly multicen tric to the left at C5-6 the central canal measuring 8 mm. Moderate bilateral neural foraminal narrow ing secondary to osteophytes. Mild effacement of the anterior thecal sac at C6-7 primarily due to to central posterior disc protrusion. There is also multilevel facet arthropathy most prominent on the r ight at C2-3. No significant cervical adenopathy or gross mass. The thyroid appears unremarkable. Visualized lung a pices are clear without pneumothorax. CONCLUSION: 1. No acute fracture or subluxation 2. Degenerative spondylosis of the cervical spine most prominently at C5-6 with posterior disc osteop hyte complex resulting in mild to moderate cervical canal stenosis and moderate bilateral neural fora lisandra narrowing. 3. Multilevel facet arthropathy most prominently at C2-3 on the right. Faustino Alejo MD on December 24, 2017 at 14:35 Board Certified Radiologist. This report was verified electronically.
--- NOTE | 2017-12-24 14:48 | RADRPT ---
EXAM DATE/TIME: 12/24/2017 14:21 [facility] COMPARISON: No previous studies available for comparison. INDICATIONS : Shortness of breath. IV CONTRAST: 86 cc Omnipaque 350 (iohexol) IV ; Cumulative dose for multiple exams. RADIATION DOSE: 16.86 CTDIvol (mGy) ; Combined studies MEDICAL HISTORY : None SURGICAL HISTORY : hernia repair ENCOUNTER: Initial ACUITY: 1 day PAIN SCALE: 0/10 LOCATION: Bilateral chest TECHNIQUE: Volumetric scanning of the chest was performed. Using automated exposure control and adjustment of t he mA and/or kV according to patient size, radiation dose was kept as low as reasonably achievable to obtain optimal diagnostic quality images. DICOM format image data is available electronically for review and comparison. Follow-up recommendations for detected pulmonary nodules are based at a minimum on nodule size and pa tient risk factors according to Fleischner Society Guidelines. FINDINGS: LUNGS: Very subtle ground glass opacities at the extreme lung bases likely reflecting atelectasis. 3 mm nodu le in the inferior right middle lobe. PLEURA: There is no pleural thickening or pleural effusion. MEDIASTINUM: The heart and great vessels demonstrate no acute abnormality. The very Central pulmonary arteries are patent. There is no mediastinal or hilar lymphadenopathy. AXILLAE: Within normal limits. No lymphadenopathy. SKELETAL: Within normal limits for patient age. MISCELLANEOUS: Stable 10 mm low density lesion in the inferior posterior right lobe of the liver. Otherwise, visuali zed upper abdomen is unremarkable. CONCLUSION: 1. Very minimal groundglass opacities at the lung bases likely reflecting atelectasis. 2. 3 mm nodule in the inferior right middle lobe. 2017 Fleischner criteria does not recommend followu p examination for <4 mm nodules. 3. Stable 10 mm posterior right lobe hepatic lesion which is too small to fully characterize but stat istically reflects a hemangioma or small cyst. Faustino Alejo MD on December 24, 2017 at 14:43 Board Certified Radiologist. This report was verified electronically.
[2017-12-24 14:54] VITALS: BP 119/81; PULSE 68; RESP 16; O2SAT 99
--- NOTE | 2017-12-24 14:54 | RADRPT ---
EXAM DATE/TIME: 12/24/2017 14:21 [facility] COMPARISON: No previous studies available for comparison. INDICATIONS : Blood in stool and diffuse abdomen pain today. IV CONTRAST: 86 cc Omnipaque 350 (iohexol) IV ; Cumulative dose for multiple exams. ORAL CONTRAST: No oral contrast ingested. RADIATION DOSE: 16.86 CTDIvol (mGy) ; Combined studies MEDICAL HISTORY : None SURGICAL HISTORY : hernia repair ENCOUNTER: Initial ACUITY: 1 day PAIN SCALE: 4/10 LOCATION: Bilateral abdomen TECHNIQUE: Volumetric scanning of the abdomen and pelvis was performed. Using automated exposure control and ad justment of the mA and/or kV according to patient size, radiation dose was kept as low as reasonably achievable to obtain optimal diagnostic quality images. DICOM format image data is available electro nically for review and comparison. FINDINGS: LIVER: Redemonstration of 10 mm hypodense lesion in the inferior posterior right lobe of the liver. Liver is otherwise unremarkable. No calcified gallstones. SPLEEN: Normal size without lesion. PANCREAS: Within normal limits. KIDNEYS: Normal in size and shape. There is no mass, stone or hydronephrosis. ADRENAL GLANDS: Within normal limits. VASCULAR: There is no aortic aneurysm. BOWEL/MESENTERY: The stomach, small bowel, and colon demonstrate no acute abnormality. Subtle scattered distal coloni c diverticula without inflammatory change. Appendix is visualized and normal in appearance. There is no free intraperitoneal air or fluid. ABDOMINAL WALL: Within normal limits. RETROPERITONEUM: There is no lymphadenopathy. BLADDER: No wall thickening or mass. REPRODUCTIVE: Within normal limits. INGUINAL: There is no lymphadenopathy or hernia. MUSCULOSKELETAL: Within normal limits for patient age. CONCLUSION: 1. No acute CT abnormality to account for patient's symptoms. 2. Normal appendix. 3. Minimal colonic diverticulosis without evidence for diverticulitis. 4. Stable 10 mm hypodense lesion in the posterior right lobe of the liver which is too small to fully characterize. Statistically, this reflects hemangioma or cyst. Faustino Alejo MD on December 24, 2017 at 14:49 Board Certified Radiologist. This report was verified electronically.
[2017-12-24 16:18] VITALS: BP 109/76; PULSE 65; RESP 16; O2SAT 96
[2017-12-24] MEDS ORDERED: SODIUM CHLOR 0.9% 250 ML INJ 250 ML IV ONE (16:30)
[2017-12-24] MEDS ORDERED: CYCL10TA PO (16:36)
[2017-12-24] MEDS ORDERED: HYDR-3583 PO (16:36)
[2017-12-24] MEDS ORDERED: KETOROLAC TROMETHAMINE 30 MG/ML (IVP) VIAL IV PUSH ONE (16:45)
== END 2017-12-24 17:13 | disposition home or self-care (01) ==
LOC: PHED 11:44
DX: M50.30 Other cervical disc degeneration, unspecified cervical region (principal); K64.9 Unspecified hemorrhoids; R74.8 Abnormal levels of other serum enzymes; F17.200 Nicotine dependence, unspecified, uncomplicated
CPT/HCPCS: 71260; 72125; 74177; 80053; 83605; 83690; 85025; 96374; 96376; 99284; J1885; J7050; Q9967